=== PATIENT | female | born 2000 | race Two or more races ===

== ENCOUNTER 2024-06-14 18:18 | Emergency (ER) | payer OTHER ==
[~2024-06-14] VITALS: Ht 149.9 cm; Wt 49.9 kg
[~2024-06-14 18:18] MED LIST: QC TUSSIN DM L118 ML PO; RANITIDINE15 MG/1 ML PO; ZITHROMAX TRI-500 MG PO; ZYRTEC10 MG PO
[2024-06-14] MEDS ORDERED: CEFTRIAXONE SODIUM 1,000 MG VIAL ONE (19:30)
[2024-06-14] MEDS ORDERED: LIDOCAINE HCL 1% 10ML VIAL ONE (19:30)
[2024-06-14] MEDS ORDERED: CEFTRIAXONE SODIUM 1,000 MG VIAL IM ONE (19:30)
[2024-06-14 19:53] LABS: HEMATOCRIT 38.3 % (36.0-45.00); HEMOGLOBIN 12.3 g/dL (12.0-15.00); MEAN CELL VOLUME 85.7 fL (80.00-100.00); MEAN CORPUSCULAR HEMOGLOBIN 27.4 pg (27.00-32.0); PLATELET COUNT 202 K/uL (150-450); RED BLOOD COUNT 4.47 M/uL (4.00-6.00); RED CELL DISTRIBUTION WIDTH 16.3 % (11.5-14.5)
[2024-06-14 20:46] LABS: PH,URINE 5.5 (5.0-8.0); URINE APPEARANCE Cloudy; URINE BILIRRUBIN Negative (NEGATIVE); URINE BLOOD Negative; URINE COLOR Yellow; URINE GLUCOSE Negative (NEGATIVE); URINE LEUKOCYTE Negative; URINE NITRATE Negative; URINE PROTEIN Negative (NEGATIVE); URINE UROBILINOGEN 0.2 E.U./dl
[2024-06-14 20:52] LABS: URINE BACTERIA 3004.7 uL (0.0-1933); URINE EPITHELIAL CELLS 96.2 uL (0.0-38.8); URINE RBC 4.8 uL (0.0-20.8); URINE WBC 54.1 uL (0.0-23.2)
[2024-06-14 21:09] LABS: URINE CAST 1.17 uL (0.0-1.40); URINE KETONE 40 (NEGATIVE)
[2024-06-14 21:10] LABS: URINE YEAST FEW /hpf
[2024-06-14] MEDS ORDERED: MONODOX100 MG PO (22:02)
== END 2024-06-14 22:23 ==
LOC: ER 18:20
PROVIDERS: Emergency Medicine
DX: R10.2 Pelvic and perineal pain (principal); J45.909 Unspecified asthma, uncomplicated; D25.9 Leiomyoma of uterus, unspecified
CPT/HCPCS: 36415; 76830; 96372; 99284; J0696

== ENCOUNTER 2024-09-22 10:05 | Emergency (ER) | payer OTHER ==
[~2024-09-22] VITALS: Ht 149.9 cm; Wt 47.6 kg
[~2024-09-22 10:05] MED LIST changes: +MONODOX100 MG PO
[2024-09-22] MEDS ORDERED: IBUPROFEN600 MG PO (14:43)
[2024-09-22] MEDS ORDERED: KETOROLAC TROMETHAMINE 60 MG VIAL IM ONE ×2 (14:45→14:46)
[2024-09-22] MEDS ORDERED: DEXAMETHASONE SODIUM PHOSPHATE 4 MG/ML VIAL IM ONE (14:45)
[2024-09-22] MEDS ORDERED: DEXAMETHASONE SODIUM PHOSPHATE 4 MG/ML VIAL ONE (14:47)
== END 2024-09-22 15:11 | disposition home or self-care (01) ==
LOC: ER 10:05
DX: M75.51 Bursitis of right shoulder (principal)